=== PATIENT | male | born 1990 | race Two or more races ===

== ENCOUNTER 2023-02-23 02:09 | Emergency (ER) | payer MEDICAID, OTHER ==
[~2023-02-23] VITALS: Ht 188 cm; Wt 100.0 kg
[2023-02-23 03:19] LABS: Basophils # (auto) 0 10 ^3/uL (0-0.2); Basophils % (auto) 0.2 % (0.0-2.0); Eosinophils # (auto) 0.4 10 ^3/uL (0-0.8); Eosinophils % (auto) 3.9 % (0.0-7.0); Hematocrit 44.1 % (41.0-53.0); Hemoglobin 14.7 g/dL (13.5-17.5); Lymphocytes % (auto) 19.3 % (10.0-50.0); Mean Corpuscular Hemoglobin 28.4 pg (28.0-32.0); Mean Corpuscular Hgb Conc. 33.3 g/dL (32.0-36.0); Mean Corpuscular Volume 85.3 fL (80.0-100.0); Monocytes # (auto) 0.8 10 ^3/uL (0-1.3); Monocytes % (auto) 7.3 % (0.0-12.0); Neutrophils # (auto) 7.2 10 ^3/uL (1.6-8.6); Neutrophils % (auto) 69.3 % (37.0-80.0); Red Blood Cells 5.17 10^6/uL (4.5-5.90); Red Cell Distribution Width 15.8 % (11.8-14.3); White Blood Cell 10.4 10^3/uL (4.4-10.8)
[2023-02-23 03:39] LABS: Alanine Aminotransferase 12 U/L (7-40); Albumin 4.8 g/dL (3.2-4.8); Alkaline Phosphatase 94 U/L (46-116); Anion Gap 6 (5-15); Aspartate Aminotransferase 17 U/L (13-40); BUN/Creatinine Ratio 6.4 (10.0-20.0); Bilirubin, Total 0.8 mg/dL (0.2-1.0); Blood Urea Nitrogen 8 mg/dL (9-23); Calcium 9.2 mg/dL (8.7-10.4); Carbon Dioxide 26 mmol/L (20-30); Chloride 107 mmol/L (98-107); Glucose 99 mg/dL (74-106); Lipase 46 U/L (12-53); Sodium 139 mmol/L (136-145); Total Protein 7.9 g/dL (5.7-8.2)
[2023-02-23] MEDS ORDERED: PANTOPRAZOLE 40 MG TAB PO ONE (04:15)
[2023-02-23] MEDS ORDERED: HYDROcodone-ACET 10/325MG TAB PO ONE (04:15)
[2023-02-23] MEDS ORDERED: METOCLOPRAMIDE HCL 10 MG TAB PO ONE (04:15)
[2023-02-23 04:33] LABS: Blood Alcohol 3.4 mg/dL (<10)
[2023-02-23 04:34] LABS: Magnesium 2.2 mg/dL (1.6-2.6)
[2023-02-23] MEDS ORDERED: HYDROcodone-ACET 5/325MG TAB PO ONE (05:00)
[2023-02-23 05:08] LABS: Amphetamine Screen, Urine Neg (NEGATIVE); Barbiturate Scree,Urine Neg (NEGATIVE); Benzodiazephine Screen, Urine Neg (NEGATIVE); Cannabinoid Screen, Urine Pos (NEGATIVE); Cocaine Screen, Urine Neg (NEGATIVE); Opiate Scree,Urine Neg (NEGATIVE); Phencyclidine Screen, Urine Neg (NEGATIVE)
[2023-02-23 05:12] VITALS: BP 121/73; TEMP 97.5
[2023-02-23 05:21] LABS: Urine Bacteria NONE SEEN /hpf (None Seen); Urine Blood 3+ /uL (Negative); Urine Clarity HAZY (Clear); Urine Color Yellow (Yellow); Urine Mucus FEW (None Seen); Urine Protein, UAD 1+ (Negative); Urine Specific Gravity 1.031 (1.001-1.035); Urine WBC 4 /hpf (0 - 3); Urine pH 5.5 (5.0-8.0)
[2023-02-23] MEDS ORDERED: TAMSULOSIN HYDROCHLORIDE 0.4 MG CAP PO ONE (06:00)
[2023-02-23] MEDS ORDERED: TAMS-35 PO (06:23)
[2023-02-23] MEDS ORDERED: NAP500T PO (06:23)
[2023-02-23] MEDS ORDERED: CYCL-611 PO (06:23)
[2023-02-23] MEDS ORDERED: METO-281 PO (06:23)
[2023-02-23] MEDS ORDERED: OXYCODONE W/ ACETAMINOPHEN 5/325MG TABLET PO ONE ×2 (06:45)
[2023-02-23] MEDS ORDERED: KETOROLAC TROMETH 60MG/2ML VIAL IM ONE (06:45)
[2023-02-23] MEDS ORDERED: ONDANSETRON ODT 4 MG TAB PO ONE (06:45)
[2023-02-23] MEDS ORDERED: IBUPROFEN 600 MG TAB PO ONE (06:45)
[2023-02-23] MEDS ORDERED: HYDROmorphone HCL 2 MG/ML VL/or syr IM ONE (06:45)
[2023-02-23 06:53] VITALS: PULSE 89; RESP 22; O2SAT 97
== END 2023-02-23 06:55 | disposition home or self-care (01) ==
LOC: ER 02:09
DX: N13.2 Hydronephrosis with renal and ureteral calculous obstruction (principal); K59.00 Constipation, unspecified; Z79.899 Other long term (current) drug therapy
CPT/HCPCS: 36415; 74176; 80053; 80307; 80320; 81001; 83690; 83735; 85025; 99284; J8597; Q0162